=== PATIENT | female | born 1980 | race Caucasian/White ===

== ENCOUNTER 2019-08-10 09:57 | Emergency (ER) | payer OTHER, SELFPAY ==
--- NOTE | ~2019-08-10 | XR_ITS ---
XR hand LT min 3V DATE: 08/10/2019 10:30 INDICATION: Fall. Laceration over second metacarpal bone. TECHNIQUE: 3 views COMPARISON: None FINDINGS: No fracture or dislocation, periosteal reaction or bone destruction. Joint spaces are prese rved. No radiopaque soft tissue foreign body is evident. Mild subcutaneous emphysema is suggested at the space between the second and third metacarpal bones on AP view.. IMPRESSION: Mild subcutaneous emphysema; no radiopaque foreign body No fracture or dislocation Reviewed, dictated and finalized at location A.
[2019-08-10 10:00] VITALS: BP 147/100; PULSE 80; RESP 16; TEMP 36.8; O2SAT 96
--- NOTE | 2019-08-10 10:23 | ED.UPPEXIN ---
HPI - Extremity Injury (Upper) General Chief Complaint: Extremity Injury, Upper <Mohinder Strickland DO - Last Filed: 08/10/19 11:43> Stated Complaint: laceration <Mohinder Strickland DO - Last Filed: 08/10/19 11:43> Time Seen by Provider: 08/10/19 10:00 <Mohinder Strickland DO - Last Filed: 08/10/19 11:43> Source: RN notes reviewed <Mohinder Strickland DO - Last Filed: 08/10/19 11:43> History of Present Illness HPI narrative: Patient presents emergency department from home for left hand laceration. Patient states that she was taking her dog out on a leash when the dog when it to Bark at people in the yard pulling her forward and striking the door. Patient with a laceration at the base of the third digit on the dorsal aspect of the hand. Patient notes mild venous bleeding. She states tenderness to the posterior aspect of the hand denies any other trauma or injury. States last tetanus shot was approximately 2 years ago <Mohinder Strickland DO - Last Filed: 08/10/19 11:43> Related Data Allergies/Adverse Reactions: Allergies Allergy/AdvReac Type Severity Reaction Status Date / Time gramicidin D Allergy Mild Nausea Verified 08/10/19 10:12 adhesive tape Allergy Unknown Unknown Verified 08/10/19 10:12 codeine Allergy Unknown unknown Verified 08/10/19 10:12 amlodipine [From Norvasc] AdvReac Nausea Verified 08/10/19 10:12 tape Allergy Severe Blisters Uncoded 08/10/19 10:12 and swelling at site. BACITRACIN ZINC Allergy Mild Hives Uncoded 08/10/19 10:12 NEOMYCIN SULFATE Allergy Mild Hives Uncoded 08/10/19 10:12 POLYMYXIN B SULFATE Allergy Mild Hives Uncoded 08/10/19 10:12 <Mohinder Strickland DO - Last Filed: 08/10/19 11:43> Review of Systems Review of Systems: Narrative: Gen.: Denies fevers or chills Musculoskeletal: See HPI Neuro: Denies numbness, tingling, weakness Skin: Reports laceration Endo: Denies DM <Mohinder Strickland DO - Last Filed: 08/10/19 11:43> PMFSH Past Medical History Medical History: Medical History Allergic rhinitis (08/02/15) Essential hypertension Migraine, unspecified, not intractable, without status migrainosus <Mohinder Strickland DO - Last Filed: 08/10/19 11:43> Social History Social History: Social History Smoking status: Former smoker Second hand tobacco smoke exposure: No Smoking end date: 04/12/05 Alcohol intake: current <Mohinder Strickland DO - Last Filed: 08/10/19 11:43> Exam Narrative: Exam Narrative: APPEARANCE: No acute distress, nontoxic, resting in bed Eyes: EOMI HEENT: Normocephalic, atraumatic, RESPIRATORY: No respiratory distress MUSCULOSKELETAl: Tender to palpation over left dorsal hand at the base of the third digit, full flexion extension of all 5 MCP PIP and DIP joints, radial pulse 2+, neurovascular intact NEURO: Awake and alert. Following commands, speech normal, no focal deficits SKIN:: Warm, dry. Normal Color no rash or lesions <DO Milo Fry Last Filed: 08/10/19 11:43> Course Course Emergency Course: Discussed with patient results of workup and diagnosis. Discussed need for follow-up with primary care, proper use of medication, and reasons to return to the emergency department. Patient understands and agrees to current treatment plan <DO Milo Fry Last Filed: 08/10/19 11:43> Vital Signs Vital signs: Vital Signs Temperature 98.3 F 08/10/19 10:00 Pulse Rate 80 08/10/19 10:00 Respiratory Rate 16 08/10/19 10:00 Blood Pressure 147/100 H 08/10/19 10:00 Pulse Oximetry 96 08/10/19 10:00 Temperature 98.3 F 08/10/19 10:00 Pulse Rate 80 08/10/19 10:00 Respiratory Rate 16 08/10/19 10:00 Blood Pressure 147/100 H 08/10/19 10:00 Pulse Oximetry 96 08/10/19 10:00 <Mohinder Strickland DO - Last Filed: 08/10/19 11:43> Vital Signs
[2019-08-10] MEDS: IBUPROFEN 600 MG TABLET PO (10:40)
== END 2019-08-10 11:47 | disposition home or self-care (01) ==
PROVIDERS: Emergency Provider Emergency Medicine; PCP Family Medicine
DX: S61.412A Laceration without foreign body of left hand, initial encounter (principal); I10 Essential (primary) hypertension; Z87.891 Personal history of nicotine dependence; W22.8XXA Striking against or struck by other objects, initial encounter; Y93.K1 Activity, walking an animal
CPT/HCPCS: 12001; 73130; 99283; A9270